=== PATIENT | female | born 1955 | race Caucasian/White ===

== ENCOUNTER → 2017-06-15 | Outpatient (CLI) | payer OTHER ==
--- NOTE | 2017-06-15 17:41 | Diagnostic Imaging Report ---
PROCEDURE:HAND THREE VIEWS BILATERAL TECHNIQUE:3 views of each hand (AP, lateral, and oblique) INDICATION:Arthritis COMPARISON:None. FINDINGS: LEFT HAND: Severe degenerative changes at the basilar joint of the thumb. Narrowing of the radiocarpal joints. No erosions are identified. No soft tissue swelling. RIGHT HAND: Severe degenerative changes of the basilar joint of the thumb. Mild degenerative changes at the PIP joints of the index and pinky fingers. Mild narrowing of the radiocarpal joint. CONCLUSION: Scattered degenerative changes as described above, more severe on the right hand. No erosions or soft tissue swelling. No definite evidence of inflammatory arthritis. Dictated by: Lorenzo Dupree M.D. on 06/15/2017 at 17:51 Electronically approved by: Lorenzo Dupree M.D. on 06/15/2017 at 17:51
--- NOTE | 2017-06-15 17:48 | Diagnostic Imaging Report ---
PROCEDURE: Frontal and lateral views of the chest. COMPARISON: None. INDICATIONS: ACID REFLUX FINDINGS: Lines/tubes: None. Lungs: The lungs are well inflated and clear. There is no evidence of pneumonia or pulmonary edema. Pleura: There is no pleural effusion or pneumothorax. Heart and mediastinum: Heart size is at the upper normal. The aorta is mildly tortuous. Bones: No acute bony abnormality. IMPRESSION: 1. No acute cardiopulmonary disease. Dictated by: Lorenzo Dupree M.D. on 06/15/2017 at 17:57 Electronically approved by: Lorenzo Dupree M.D. on 06/15/2017 at 17:57
--- NOTE | 2017-06-15 17:50 | Diagnostic Imaging Report ---
PROCEDURE:KNEE 1-2 VIEWS BILATERAL COMPARISON:None. INDICATIONS:ARTHRITIS FINDINGS: 2 views of each knee (AP and crosstable lateral) RIGHT KNEE: Moderate degenerative changes right knee with medial joint space narrowing and osteophyte formation with subchondral sclerosis. Small knee joint effusion. No fracture or dislocation. Soft tissues are unremarkable. LEFT KNEE: Moderate degenerative changes of the left knee with medial joint space narrowing and osteophyte formation with subchondral sclerosis. No fracture or dislocation. Soft tissues are unremarkable. CONCLUSION: Osteoarthritis as above. Dictated by: Lorenzo Dupree M.D. on 06/15/2017 at 18:00 Electronically approved by: Lorenzo Dupree M.D. on 06/15/2017 at 18:00
== END ==
LOC: RAD 16:10
PROVIDERS: ATTEND Internal Medicine
DX: Z00.00 Encounter for general adult medical examination without abnormal findings (principal); M19.042 Primary osteoarthritis, left hand; M19.041 Primary osteoarthritis, right hand; M17.0 Bilateral primary osteoarthritis of knee
CPT/HCPCS: 71046

== ENCOUNTER → 2018-01-15 | Outpatient (CLI) | payer OTHER ==
--- NOTE | 2018-01-15 10:40 | Diagnostic Imaging Report ---
PROCEDURE: US THYROID COMPARISON: None. INDICATIONS:hypothyroidism TECHNIQUE: Transverse and longitudinal branch-scale sonographic images of the thyroid were obtained and supplemented with color doppler. FINDINGS: Right thyroid lobe: 3.6 x 1.5 x 1.7 cm. Heterogeneous parenchymal echotexture without focal nodule. Normal vascularity by color Doppler analysis. Left thyroid lobe: Slightly diminutive, 2.5 x 0.7 x 0.6 cm. Heterogeneous parenchymal echotexture without focal nodule. Normal vascularity by color Doppler analysis. Isthmus: 0.2 cm. CONCLUSION: Heterogeneous thyroid parenchyma without discrete nodule. Nonspecific slightly diminutive left thyroid lobe. Dictated by: Zaire Gutierrez M.D. on 01/15/2018 at 10:46 Electronically approved by: Zaire Gutierrez M.D. on 01/15/2018 at 10:46
== END ==
LOC: US 09:25
PROVIDERS: ATTEND Internal Medicine
DX: E03.9 Hypothyroidism, unspecified (principal)
CPT/HCPCS: 76536

== ENCOUNTER → 2018-04-29 | Outpatient (CLI) | payer OTHER ==
--- NOTE | 2018-05-17 08:38 | Diagnostic Imaging Report ---
#[id number] - [id number] #BILATERAL DIGITAL SCREENING MAMMOGRAM WITH CAD: 04/29/2018 CLINICAL: Routine screening. No prior exams were available for comparison. Current study contains 4 films. The tissue of both breasts is predominantly fatty. Current study was also evaluated with a Computer Aided Detection (CAD) system. No significant masses, calcifications, or other findings are seen in either breast. IMPRESSION: NEGATIVE There is no mammographic evidence of malignancy. A 1 year screening mammogram is recommended. The patient will be notified by letter of the results. Saeed puckett/sarah:05/17/2018 07:41:13 [employer]: Temi PRASAD(Belinda)(M), [facility] letter sent: Normal Exam Mammogram BI-RADS: 1 Negative
== END ==
LOC: MAMMO 13:31
PROVIDERS: ATTEND Internal Medicine
DX: Z12.31 Encounter for screening mammogram for malignant neoplasm of breast (principal)
CPT/HCPCS: 77067